=== PATIENT | female | born 1995 | race Caucasian/White ===

== ENCOUNTER 2017-08-11 18:31 | Emergency (ER) | payer SELFPAY ==
[~2017-08-11] VITALS: Ht 160 cm; Wt 90.1 kg
[2017-08-11 19:49] LABS: HEMATOCRIT 33.6 % (36.0-46.0); HEMOGLOBIN 10.6 G/DL (11.9-15.5); MCH 26.7 PG (29.0-34.0); MCHC 31.5 G/DL (30.0-36.0); MCV 84.6 FL (83-99); PLATELET COUNT 395 K/uL (156-360); RBC DIS.WIDTH-CV 13.4 % (11.8-14.6); RBC DIS.WIDTH-SD 41.2 % (39-53); RED BLOOD COUNT 3.97 M/uL (3.80-5.20)
[2017-08-11 20:23] LABS: ALBUMIN 4.5 g/dL (3.2-4.8)
[2017-08-11 20:24] LABS: CHLORIDE 106 mEq/L (99-109); POTASSIUM 4.2 mEq/L (3.7-5.4); SODIUM 141 mEq/L (136-147)
[2017-08-11 20:26] LABS: GLUCOSE 96 mg/dL (70-99)
[2017-08-11 20:28] LABS: TOTAL BILIRUBIN 0.1 mg/dL (0.0-1.0)
[2017-08-11 20:29] LABS: ALKALINE PHOSPHATASE 63 IU/L (3-129)
[2017-08-11 20:30] LABS: CREATININE 0.7 mg/dL (0.6-1.3)
[2017-08-11 20:31] LABS: AST (GOT) 23 IU/L (2-34); UREA NITROGEN (BUN) 12 mg/dL (9-23)
[2017-08-11 20:33] LABS: ALT (GPT) 25 IU/L (3-49)
[2017-08-11 20:37] LABS: GFR ESTIMATE (CALCULATED) > 59 mL/min/
[2017-08-11 20:40] LABS: QUANTITATIVE HCG < 4.0 MIU/ML
[2017-08-11 22:23] LABS: APPEARANCE CLEAR ((CLEAR)); BILIRUBIN NEGATIVE; BLOOD NEGATIVE; COLOR YELLOW ((YELLOW)); GLUCOSE (STRIP) NEGATIVE; KETONES NEGATIVE; LEUKOCYTES NEGATIVE; NITRITE NEGATIVE; PROTEIN (STRIP) NEGATIVE; UCUL ADDED? NO; UROBILINOGEN 0.2 MG/DL (0.2-1.0)
[2017-08-11 23:06] VITALS: BP 166/86
== END 2017-08-11 23:08 | disposition home or self-care (01) ==
LOC: EME 18:31
PROVIDERS: Physician Assistant Medical
DX: O03.9 Complete or unspecified spontaneous abortion without complication (principal); F32.9 Major depressive disorder, single episode, unspecified
CPT/HCPCS: 80053; 81003; 84702; 85027; 99281; 99284

== ENCOUNTER 2017-08-17 10:31 | Emergency (ER) | payer OTHER ==
[~2017-08-17] VITALS: Ht 160 cm; Wt 87.8 kg
[2017-08-17 12:26] VITALS: BP 127/65
== END 2017-08-17 12:27 | disposition home or self-care (01) ==
LOC: EME 10:31
DX: Z76.0 Encounter for issue of repeat prescription (principal); F32.9 Major depressive disorder, single episode, unspecified; Z59.0 Homelessness
CPT/HCPCS: 99281; 99283

== ENCOUNTER 2017-08-21 21:20 | Emergency (ER) | payer OTHER ==
[~2017-08-21] VITALS: Ht 160 cm; Wt 70.0 kg
[2017-08-21] MEDS ORDERED: LAMOTRIGINE ODT50 MG PO (21:44)
[2017-08-21] MEDS ORDERED: THORAZINE25 MG PO (22:01)
[2017-08-21 22:10] VITALS: BP 127/82
== END 2017-08-21 22:11 | disposition home or self-care (01) ==
LOC: EME → EDBD 21:20 → EME 21:20
DX: F43.0 Acute stress reaction (principal); S61.511A Laceration without foreign body of right wrist, initial encounter; S31.113A Laceration without foreign body of abdominal wall, right lower quadrant without penetration into peritoneal cavity, initial encounter; X78.9XXA Intentional self-harm by unspecified sharp object, initial encounter
CPT/HCPCS: 99281; 99285

== ENCOUNTER 2017-08-24 13:10 | Emergency (ER) | payer OTHER ==
[~2017-08-24] VITALS: Ht 160 cm; Wt 86.4 kg
[~2017-08-24 13:10] MED LIST: LAMOTRIGINE ODT50 MG PO; THORAZINE25 MG PO
[2017-08-24 13:22] VITALS: BP 117/76
[2017-08-24 14:09] LABS: APPEARANCE SL.HAZY ((CLEAR)); BILIRUBIN NEGATIVE; BLOOD MODERATE; COLOR YELLOW ((YELLOW)); GLUCOSE (STRIP) NEGATIVE; KETONES NEGATIVE; LEUKOCYTES NEGATIVE; NITRITE NEGATIVE; PROTEIN (STRIP) NEGATIVE; SPECIFIC GRAVITY 1.027 (1.000-1.030); UROBILINOGEN 0.2 MG/DL (0.2-1.0)
[2017-08-24 14:13] LABS: BACTERIA RARE /HPF; EPITHELIAL CELLS 1+ /HPF; MUCUS 1+ /LPF; UCUL ADDED? NO; WHITE BLOOD CELLS 0-5 /HPF (0-5)
== END 2017-08-24 16:21 | disposition left against medical advice (07) ==
LOC: EME 13:10
DX: N93.9 Abnormal uterine and vaginal bleeding, unspecified (principal); Z53.21 Procedure and treatment not carried out due to patient leaving prior to being seen by health care provider
CPT/HCPCS: 81003

== ENCOUNTER 2017-09-11 12:58 | Emergency (ER) | payer OTHER ==
[~2017-09-11] VITALS: Ht 160 cm; Wt 86.5 kg
[2017-09-11 14:42] LABS: HEMATOCRIT 33.4 % (36.0-46.0); HEMOGLOBIN 10.8 G/DL (11.9-15.5); MCH 26.2 PG (29.0-34.0); MCHC 32.3 G/DL (30.0-36.0); MCV 80.9 FL (83-99); PLATELET COUNT 389 K/uL (156-360); RBC DIS.WIDTH-CV 13.6 % (11.8-14.6); RBC DIS.WIDTH-SD 40.1 % (39-53); RED BLOOD COUNT 4.13 M/uL (3.80-5.20); WHITE BLOOD COUNT 12.5 K/uL (4.1-10.2)
[2017-09-11 14:51] LABS: CHLORIDE 107 mEq/L (99-109); POTASSIUM 3.6 mEq/L (3.7-5.4); SODIUM 142 mEq/L (136-147)
[2017-09-11 14:53] LABS: GLUCOSE 102 mg/dL (70-99)
[2017-09-11 14:56] LABS: SERUM ETHYL ALCOHOL < 10 mg/dL
[2017-09-11 14:57] LABS: CREATININE 0.7 mg/dL (0.6-1.3); GFR ESTIMATE (CALCULATED) > 59 mL/min/
[2017-09-11 14:58] LABS: UREA NITROGEN (BUN) 9 mg/dL (9-23)
[2017-09-11 20:56] LABS: APPEARANCE SL.HAZY ((CLEAR)); BILIRUBIN NEGATIVE; BLOOD NEGATIVE; COLOR YELLOW ((YELLOW)); GLUCOSE (STRIP) NEGATIVE; KETONES NEGATIVE; LEUKOCYTES NEGATIVE; NITRITE NEGATIVE; PROTEIN (STRIP) 30; SPECIFIC GRAVITY 1.023 (1.000-1.030); UROBILINOGEN 0.2 MG/DL (0.2-1.0)
[2017-09-11 21:03] LABS: BACTERIA RARE /HPF; EPITHELIAL CELLS 1+ /HPF; MUCUS 1+ /LPF; RED BLOOD CELLS 0-5 /HPF (0-5); UCUL ADDED? NO; WHITE BLOOD CELLS 0-5 /HPF (0-5)
[2017-09-11 21:11] LABS: AMPHETAMINE NEGATIVE (500 ng/mL); BARBITURATES NEGATIVE (200 ng/mL); BENZODIAZEPINES PRESUMPTIVE POSITIVE (150 ng/mL); BUPRENORPHINE NEGATIVE (10 ng/mL); COCAINE NEGATIVE (150 ng/mL); METHADONE NEGATIVE (200 ng/mL); METHAMPHETAMINE NEGATIVE (500 ng/mL); OPIATES (MORPHINE) NEGATIVE (100 ng/mL); OXYCODONE NEGATIVE (100 ng/mL); PHENCYCLIDINE NEGATIVE (25 ng/mL); PROPOXYPHENE NEGATIVE (300 ng/mL); THC CANNABINOIDS NEGATIVE (50 ng/mL); TRICYCLIC ANTIDEPRESSANTS NEGATIVE (300 ng/mL)
[2017-09-11 21:46] LABS: BENZODIAZEPINES, URINE SCREEN Negative (200 ng/mL)
[2017-09-11] MEDS ORDERED: BACTRIM,SEPT1 TABLET PO (22:20)
[2017-09-12] MEDS ORDERED: BACTRIM,SEPT1 TABLET PO (14:03)
[2017-09-12 14:19] VITALS: BP 145/70
== END 2017-09-12 14:21 ==
LOC: EME 12:58
PROVIDERS: Emergency Medicine
PROC: 0HQDXZZ Repair Right Lower Arm Skin, External Approach (ICD-10-PCS; principal; 2017-09-11)
DX: F31.4 Bipolar disorder, current episode depressed, severe, without psychotic features (principal); N39.0 Urinary tract infection, site not specified; R45.851 Suicidal ideations; F60.3 Borderline personality disorder; S61.511A Laceration without foreign body of right wrist, initial encounter; X78.8XXA Intentional self-harm by other sharp object, initial encounter; F43.10 Post-traumatic stress disorder, unspecified; F17.200 Nicotine dependence, unspecified, uncomplicated
CPT/HCPCS: 80048; 81003; 81025; 84999; 85027; 90837; 99281; 99285; G0480; J1200; J1630; J2060

== ENCOUNTER 2017-09-30 20:21 | Emergency (ER) | payer OTHER ==
[~2017-09-30] VITALS: Ht 160 cm; Wt 90.8 kg
[~2017-09-30 20:21] MED LIST changes: +BACTRIM,SEPT1 TABLET PO
[2017-09-30 20:52] LABS: HEMATOCRIT 33.1 % (36.0-46.0); HEMOGLOBIN 10.7 G/DL (11.9-15.5); MCH 26.2 PG (29.0-34.0); MCHC 32.3 G/DL (30.0-36.0); MCV 80.9 FL (83-99); PLATELET COUNT 392 K/uL (156-360); RBC DIS.WIDTH-CV 14.6 % (11.8-14.6); RED BLOOD COUNT 4.09 M/uL (3.80-5.20); WHITE BLOOD COUNT 10.8 K/uL (4.1-10.2)
[2017-09-30 21:02] LABS: ALBUMIN 4.2 g/dL (3.2-4.8); CHLORIDE 105 mEq/L (99-109); SODIUM 139 mEq/L (136-147)
[2017-09-30 21:05] LABS: GLUCOSE 143 mg/dL (70-99)
[2017-09-30 21:06] LABS: TOTAL BILIRUBIN 0.4 mg/dL (0.0-1.0)
[2017-09-30 21:08] LABS: ALKALINE PHOSPHATASE 102 IU/L (3-129); CREATININE 0.7 mg/dL (0.6-1.3); GFR ESTIMATE (CALCULATED) > 59 mL/min/
[2017-09-30 21:09] LABS: UREA NITROGEN (BUN) 8 mg/dL (9-23)
[2017-09-30 21:10] LABS: AST (GOT) 75 IU/L (2-34)
[2017-09-30 21:11] LABS: ALT (GPT) 180 IU/L (3-49)
[2017-09-30 21:17] LABS: QUANTITATIVE HCG < 4.0 MIU/ML
[2017-09-30 21:20] LABS: APPEARANCE SL.HAZY ((CLEAR)); BILIRUBIN NEGATIVE; BLOOD SMALL; COLOR YELLOW ((YELLOW)); GLUCOSE (STRIP) NEGATIVE; KETONES NEGATIVE; LEUKOCYTES NEGATIVE; NITRITE NEGATIVE; PROTEIN (STRIP) NEGATIVE; SPECIFIC GRAVITY 1.016 (1.000-1.030); UROBILINOGEN 0.2 MG/DL (0.2-1.0)
[2017-09-30 21:28] LABS: BACTERIA NONE SEEN /HPF; EPITHELIAL CELLS 2+ /HPF; MUCUS TRACE /LPF; RED BLOOD CELLS 0-5 /HPF (0-5); UCUL ADDED? NO; WHITE BLOOD CELLS 0-5 /HPF (0-5)
[2017-10-01 01:11] VITALS: BP 137/77
== END 2017-10-01 01:12 | disposition home or self-care (01) ==
LOC: EME 20:21
DX: K59.00 Constipation, unspecified (principal); I88.0 Nonspecific mesenteric lymphadenitis; K80.20 Calculus of gallbladder without cholecystitis without obstruction; K76.0 Fatty (change of) liver, not elsewhere classified; F32.9 Major depressive disorder, single episode, unspecified; F43.10 Post-traumatic stress disorder, unspecified; F60.3 Borderline personality disorder; Z87.19 Personal history of other diseases of the digestive system; F17.200 Nicotine dependence, unspecified, uncomplicated; Z88.6 Allergy status to analgesic agent; Z91.040 Latex allergy status
CPT/HCPCS: 74177; 80053; 81003; 84702; 85027; 99281; 99285; J7030

== ENCOUNTER 2017-10-09 10:57 | Inpatient (IN) | payer OTHER ==
[~2017-10-09] VITALS: Ht 160 cm; Wt 86.8 kg
[2017-10-09 12:14] LABS: BASOPHIL (%) 0.5 % (0-1); EOSINOPHIL (%) 2.7 % (0-5); EOSINOPHIL COUNT 0.2 K/uL (0-0.3); HEMATOCRIT 36.6 % (36.0-46.0); HEMOGLOBIN 11.5 G/DL (11.9-15.5); IMMATURE GRANULOCYTE (%) 0.4 % (0.0-0.7); LYMPHOCYTE (%) 21.5 % (15-42); LYMPHOCYTE COUNT 1.7 K/uL (1.0-2.8); MCH 25.5 PG (29.0-34.0); MCHC 31.4 G/DL (30.0-36.0); MCV 81.2 FL (83-99); MONOCYTE (%) 6.5 % (3-12); MONOCYTE COUNT 0.5 K/uL (0-0.8); NEUTROPHIL (%) 68.4 % (45-76); NEUTROPHIL COUNT 5.5 K/uL (1.8-6.4); PLATELET COUNT 402 K/uL (156-360); RBC DIS.WIDTH-CV 14.4 % (11.8-14.6); RBC DIS.WIDTH-SD 41.7 % (39-53); RED BLOOD COUNT 4.51 M/uL (3.80-5.20)
[2017-10-09 12:15] LABS: APPEARANCE CLEAR ((CLEAR)); BILIRUBIN NEGATIVE; BLOOD NEGATIVE; COLOR YELLOW ((YELLOW)); GLUCOSE (STRIP) NEGATIVE; KETONES NEGATIVE; LEUKOCYTES NEGATIVE; NITRITE NEGATIVE; PROTEIN (STRIP) NEGATIVE; SPECIFIC GRAVITY 1.017 (1.000-1.030); UROBILINOGEN 0.2 MG/DL (0.2-1.0)
[2017-10-09 12:23] LABS: CHLORIDE 106 mEq/L (99-109); POTASSIUM 4.4 mEq/L (3.7-5.4); SODIUM 139 mEq/L (136-147)
[2017-10-09 12:25] LABS: GLUCOSE 97 mg/dL (70-99)
[2017-10-09 12:28] LABS: SERUM ETHYL ALCOHOL < 10 mg/dL
[2017-10-09 12:29] LABS: CREATININE 0.7 mg/dL (0.6-1.3); GFR ESTIMATE (CALCULATED) > 59 mL/min/
[2017-10-09 12:30] LABS: UREA NITROGEN (BUN) 13 mg/dL (9-23)
[2017-10-09 12:37] LABS: QUANTITATIVE HCG < 4.0 MIU/ML
[2017-10-09 12:45] LABS: AMPHETAMINE NEGATIVE (500 ng/mL); BARBITURATES NEGATIVE (200 ng/mL); BENZODIAZEPINES NEGATIVE (150 ng/mL); BUPRENORPHINE NEGATIVE (10 ng/mL); COCAINE NEGATIVE (150 ng/mL); METHADONE NEGATIVE (200 ng/mL); METHAMPHETAMINE NEGATIVE (500 ng/mL); OPIATES (MORPHINE) NEGATIVE (100 ng/mL); OXYCODONE NEGATIVE (100 ng/mL); PHENCYCLIDINE NEGATIVE (25 ng/mL); PROPOXYPHENE NEGATIVE (300 ng/mL); THC CANNABINOIDS NEGATIVE (50 ng/mL); TRICYCLIC ANTIDEPRESSANTS NEGATIVE (300 ng/mL)
[2017-10-09] MEDS ORDERED: GABAPENTIN300 MG PO (14:40)
[2017-10-09] MEDS ORDERED: ZYPREXA10 MG PO (14:40)
[2017-10-09] MEDS ORDERED: ZYPREXA5 MG PO (14:41)
[2017-10-09] MEDS ORDERED: XANAX1 MG PO (14:42)
[2017-10-09] MEDS ORDERED: PAXIL10 MG PO ×2 (14:44→15:59)
[2017-10-09] MEDS ORDERED: SEROQUEL12.5 MG PO (14:44)
[2017-10-09] MEDS ORDERED: CLONAZEPAM0.5 MG PO (14:45)
[2017-10-09 15:00] VITALS: BP 121/57
[2017-10-10 08:48] VITALS: BP 111/58
[2017-10-10 15:32] VITALS: BP 115/57
[2017-10-11 08:11] VITALS: BP 105/57
[2017-10-11 15:47] VITALS: BP 109/54
[2017-10-12 07:48] VITALS: BP 94/45
[2017-10-12 15:40] VITALS: BP 129/60
[2017-10-13 07:53] VITALS: BP 109/52
[2017-10-13] MEDS ORDERED: ZYPREXA20 MG PO (09:12)
[2017-10-13] MEDS ORDERED: GABAPENTIN300 MG PO (09:12)
[2017-10-13] MEDS ORDERED: CLONAZEPAM0.5 MG PO (09:12)
[2017-10-13] MEDS ORDERED: PAROXETINE HCL30 MG PO (09:12)
== END 2017-10-13 10:44 | disposition home or self-care (01) | DRG 885 ==
LOC: EME 10:57 → EDOF 13:02 → 1WEST 13:02 → EDOF 13:34 → ENRESERV 14:09 → 1WEST 14:42
PROVIDERS: Emergency Medicine
DX: F31.9 Bipolar disorder, unspecified (principal); R45.851 Suicidal ideations; F60.3 Borderline personality disorder; F43.10 Post-traumatic stress disorder, unspecified; F17.200 Nicotine dependence, unspecified, uncomplicated; Z62.810 Personal history of physical and sexual abuse in childhood; Z62.811 Personal history of psychological abuse in childhood; Z91.5 Personal history of self-harm; Z81.8 Family history of other mental and behavioral disorders; Z88.6 Allergy status to analgesic agent; Z91.040 Latex allergy status
CPT/HCPCS: 80048; 81003; 84702; 85025; 90839; 97165 GO; 99281; 99285; G0480; Q0161; Q0177

== ENCOUNTER 2017-10-17 20:52 | Emergency (ER) | payer OTHER ==
[~2017-10-17] VITALS: Ht 160 cm; Wt 90.6 kg
[~2017-10-17 20:52] MED LIST changes: +CLONAZEPAM0.5 MG PO; +GABAPENTIN300 MG PO; +PAROXETINE HCL30 MG PO; +PAXIL10 MG PO; +SEROQUEL12.5 MG PO; +XANAX1 MG PO; +ZYPREXA10 MG PO; +ZYPREXA20 MG PO; +ZYPREXA5 MG PO
[2017-10-17 22:58] LABS: APPEARANCE SL.HAZY ((CLEAR)); BILIRUBIN NEGATIVE; BLOOD NEGATIVE; COLOR YELLOW ((YELLOW)); GLUCOSE (STRIP) 50; KETONES NEGATIVE; LEUKOCYTES MODERATE; NITRITE NEGATIVE; PROTEIN (STRIP) 30; SPECIFIC GRAVITY 1.018 (1.000-1.030); UROBILINOGEN 0.2 MG/DL (0.2-1.0)
[2017-10-17] MEDS ORDERED: FLAGYL500 MG PO (23:02)
[2017-10-17] MEDS ORDERED: DIFLUCAN150 MG PO (23:02)
[2017-10-17 23:08] LABS: BACTERIA 3+ /HPF; EPITHELIAL CELLS 3+ /HPF; MUCUS TRACE /LPF; RED BLOOD CELLS 0-5 /HPF (0-5)
[2017-10-17 23:20] VITALS: BP 129/81
== END 2017-10-17 23:21 | disposition home or self-care (01) ==
LOC: EME 20:52
PROVIDERS: Nurse Practitioner Family
DX: R10.31 Right lower quadrant pain (principal); N76.0 Acute vaginitis; B37.3 Candidiasis of vulva and vagina; F32.9 Major depressive disorder, single episode, unspecified; F60.3 Borderline personality disorder; F43.10 Post-traumatic stress disorder, unspecified; F17.200 Nicotine dependence, unspecified, uncomplicated
CPT/HCPCS: 81003; 81025; 99281; 99283

== ENCOUNTER 2017-11-03 16:58 | Emergency (ER) | payer OTHER ==
[~2017-11-03] VITALS: Ht 160 cm; Wt 86.9 kg
[~2017-11-03 16:58] MED LIST changes: +DIFLUCAN150 MG PO; +FLAGYL500 MG PO
[2017-11-03 17:10] VITALS: BP 131/68
[2017-11-03 17:31] LABS: APPEARANCE CLEAR ((CLEAR)); BILIRUBIN NEGATIVE; BLOOD MODERATE; COLOR YELLOW ((YELLOW)); GLUCOSE (STRIP) NEGATIVE; KETONES 5; LEUKOCYTES TRACE; NITRITE NEGATIVE; PROTEIN (STRIP) NEGATIVE; UROBILINOGEN 0.2 MG/DL (0.2-1.0)
[2017-11-03 17:36] LABS: BACTERIA RARE /HPF; EPITHELIAL CELLS 1+ /HPF; HYALINE CASTS 0-5 /LPF; MUCUS 2+ /LPF; RED BLOOD CELLS 0-5 /HPF (0-5)
[2017-11-03 17:37] LABS: HEMATOCRIT 37.5 % (36.0-46.0); MCH 25.8 PG (29.0-34.0); MCV 80.5 FL (83-99); PLATELET COUNT 429 K/uL (156-360); RBC DIS.WIDTH-SD 43.7 % (39-53); RED BLOOD COUNT 4.66 M/uL (3.80-5.20); WHITE BLOOD COUNT 9.2 K/uL (4.1-10.2)
[2017-11-03 17:45] LABS: ALBUMIN 4.9 g/dL (3.2-4.8)
[2017-11-03 17:46] LABS: CHLORIDE 104 mEq/L (99-109); POTASSIUM 4.3 mEq/L (3.7-5.4); SODIUM 140 mEq/L (136-147)
[2017-11-03 17:48] LABS: GLUCOSE 85 mg/dL (70-99)
[2017-11-03 17:50] LABS: TOTAL BILIRUBIN 0.2 mg/dL (0.0-1.0)
[2017-11-03 17:51] LABS: ALKALINE PHOSPHATASE 74 IU/L (3-129)
[2017-11-03 17:52] LABS: CREATININE 0.8 mg/dL (0.6-1.3); GFR ESTIMATE (CALCULATED) > 59 mL/min/
[2017-11-03 17:53] LABS: AST (GOT) 28 IU/L (2-34); UREA NITROGEN (BUN) 10 mg/dL (9-23)
[2017-11-03 17:55] LABS: ALT (GPT) 35 IU/L (3-49)
[2017-11-03 18:00] LABS: QUANTITATIVE HCG < 4.0 MIU/ML
[2017-11-03] MEDS ORDERED: ZOFRAN ODT4 MG PO (18:36)
[2017-11-03] MEDS ORDERED: BACTRIM,SEPT1 TABLET PO (18:36)
[2017-11-04] MEDS ORDERED: KLONOPIN0.5 M1 PO (11:18)
[2017-11-04] MEDS ORDERED: GABAPENTIN300 MG PO (11:18)
[2017-11-04] MEDS ORDERED: PAXIL30 MG PO (11:18)
[2017-11-04] MEDS ORDERED: OLANZAPINE10 MG PO (11:19)
== END 2017-11-03 18:46 | disposition home or self-care (01) ==
LOC: EME 16:58
PROVIDERS: Nurse Practitioner Family
DX: R10.31 Right lower quadrant pain (principal); N39.0 Urinary tract infection, site not specified; R11.2 Nausea with vomiting, unspecified; R19.7 Diarrhea, unspecified; F17.200 Nicotine dependence, unspecified, uncomplicated
CPT/HCPCS: 74177; 80053; 81003; 84702; 85027; 99281; 99285; J2405; J3010; J7030

== ENCOUNTER 2017-11-03 22:55 | Inpatient (IN) | payer OTHER ==
[~2017-11-03] VITALS: Ht 160 cm; Wt 84.5 kg
[~2017-11-03 22:55] MED LIST changes: +ZOFRAN ODT4 MG PO
[2017-11-03 23:50] LABS: AMPHETAMINE NEGATIVE (500 ng/mL); BARBITURATES NEGATIVE (200 ng/mL); BENZODIAZEPINES NEGATIVE (150 ng/mL); BUPRENORPHINE NEGATIVE (10 ng/mL); COCAINE NEGATIVE (150 ng/mL); METHADONE NEGATIVE (200 ng/mL); METHAMPHETAMINE NEGATIVE (500 ng/mL); OPIATES (MORPHINE) NEGATIVE (100 ng/mL); OXYCODONE NEGATIVE (100 ng/mL); PHENCYCLIDINE NEGATIVE (25 ng/mL); PROPOXYPHENE NEGATIVE (300 ng/mL); THC CANNABINOIDS NEGATIVE (50 ng/mL); TRICYCLIC ANTIDEPRESSANTS PRESUMPTIVE POSITIVE (300 ng/mL)
[2017-11-04] VITALS (22 sets, daily range): BP systolic 112–145; BP diastolic 61–91
[2017-11-04 00:02] LABS: HEMATOCRIT 38.2 % (36.0-46.0); HEMOGLOBIN 12.3 G/DL (11.9-15.5); MCH 25.8 PG (29.0-34.0); MCHC 32.2 G/DL (30.0-36.0); MCV 80.1 FL (83-99); PLATELET COUNT 438 K/uL (156-360); RBC DIS.WIDTH-SD 43.7 % (39-53); RED BLOOD COUNT 4.77 M/uL (3.80-5.20); WHITE BLOOD COUNT 9.4 K/uL (4.1-10.2)
[2017-11-04 00:25] LABS: CHLORIDE 106 mEq/L (99-109); POTASSIUM 4.2 mEq/L (3.7-5.4); SODIUM 141 mEq/L (136-147)
[2017-11-04 00:27] LABS: GLUCOSE 127 mg/dL (70-99); TOTAL PROTEIN 7.8 g/dL (6.4-8.3)
[2017-11-04 00:28] LABS: COMMENTS - BLOOD GASES C+; DEVICE VENT; FI02 60 %; MECHANICAL RATE 14 resp/min; MODE AC; PEEP 5 CM/H20; SITE LR; TIDAL VOLUME 450 ML; TOTAL RESP RATE 23 resp/min; pH 7.41 (7.35-7.45)
[2017-11-04 00:29] LABS: TOTAL BILIRUBIN 0.2 mg/dL (0.0-1.0)
[2017-11-04 00:29] LABS: BASE EXCESS -3.1 mEq/L (-3 to +3); BICARBONATE 20.9 mEq/L (22-26); CARBOXY HGB 1.1 % (0-5); O2 SATURATION (CALCULATED) 97.2 % (95-99); PCO2 33 mm Hg (35-45); PO2 153 mm Hg (80-100)
[2017-11-04 00:30] LABS: SERUM ETHYL ALCOHOL < 10 mg/dL
[2017-11-04 00:31] LABS: ALKALINE PHOSPHATASE 75 IU/L (3-129); CREATININE 0.8 mg/dL (0.6-1.3); GFR ESTIMATE (CALCULATED) > 59 mL/min/
[2017-11-04 00:32] LABS: AST (GOT) 28 IU/L (2-34)
[2017-11-04 00:33] LABS: UREA NITROGEN (BUN) 9 mg/dL (9-23)
[2017-11-04 00:34] LABS: ALT (GPT) 35 IU/L (3-49); SALICYLATE < 5.0 MG/DL (15-30)
[2017-11-04 00:35] LABS: ACETAMINOPHEN (TYLENOL) < 10 mcg/mL (10-30); LIPASE 19 U/L (1.0-51.0)
[2017-11-04 00:44] LABS: QUANTITATIVE HCG < 4.0 MIU/ML
[2017-11-04 05:46] LABS: BASOPHIL (%) 0.2 % (0-1); EOSINOPHIL (%) 0.4 % (0-5); EOSINOPHIL COUNT 0.1 K/uL (0-0.3); HEMATOCRIT 33.2 % (36.0-46.0); IMMATURE GRANULOCYTE (%) 0.2 % (0.0-0.7); LYMPHOCYTE (%) 12.4 % (15-42); LYMPHOCYTE COUNT 1.7 K/uL (1.0-2.8); MCH 25.7 PG (29.0-34.0); MCV 82.8 FL (83-99); MONOCYTE (%) 4.7 % (3-12); MONOCYTE COUNT 0.6 K/uL (0-0.8); NEUTROPHIL (%) 82.1 % (45-76); NEUTROPHIL COUNT 11.1 K/uL (1.8-6.4); PLATELET COUNT 334 K/uL (156-360); RBC DIS.WIDTH-CV 15.3 % (11.8-14.6); RBC DIS.WIDTH-SD 46.5 % (39-53); RED BLOOD COUNT 4.01 M/uL (3.80-5.20); WHITE BLOOD COUNT 13.5 K/uL (4.1-10.2)
[2017-11-04 05:49] LABS: HEMOGLOBIN 10.3 G/DL (11.9-15.5)
[2017-11-04 06:00] LABS: CHLORIDE 114 MEQ/L (99-109); CREATININE 0.7 MG/DL (0.6-1.3); GFR ESTIMATE (CALCULATED) > 59 mL/min/; GLUCOSE 176 mg/dL (70-99); POTASSIUM 4.3 MEQ/L (3.7-5.4); SODIUM 141 MEQ/L (136-147); UREA NITROGEN (BUN) 7 mg/dL (9-23)
[2017-11-04] MEDS ORDERED: PAXIL30 MG PO (11:18)
[2017-11-04] MEDS ORDERED: KLONOPIN0.5 M1 PO (11:18)
[2017-11-04] MEDS ORDERED: GABAPENTIN300 MG PO (11:18)
[2017-11-04] MEDS ORDERED: OLANZAPINE10 MG PO (11:19)
[2017-11-05] VITALS (21 sets, daily range): BP systolic 116–142; BP diastolic 67–98
[2017-11-05 06:00] LABS: BASOPHIL (%) 0.5 % (0-1); EOSINOPHIL (%) 2.2 % (0-5); EOSINOPHIL COUNT 0.2 K/uL (0-0.3); HEMATOCRIT 29.9 % (36.0-46.0); HEMOGLOBIN 9.3 G/DL (11.9-15.5); IMMATURE GRANULOCYTE (%) 0.4 % (0.0-0.7); LYMPHOCYTE COUNT 1.5 K/uL (1.0-2.8); MCH 25.2 PG (29.0-34.0); MCHC 31.1 G/DL (30.0-36.0); MONOCYTE (%) 9.5 % (3-12); MONOCYTE COUNT 0.8 K/uL (0-0.8); NEUTROPHIL (%) 69.4 % (45-76); NEUTROPHIL COUNT 5.6 K/uL (1.8-6.4); PLATELET COUNT 293 K/uL (156-360); RBC DIS.WIDTH-CV 15.5 % (11.8-14.6); RBC DIS.WIDTH-SD 45.9 % (39-53); RED BLOOD COUNT 3.69 M/uL (3.80-5.20); WHITE BLOOD COUNT 8.1 K/uL (4.1-10.2)
[2017-11-05 06:45] LABS: CHLORIDE 111 MEQ/L (99-109); CREATININE 0.5 MG/DL (0.6-1.3); GFR ESTIMATE (CALCULATED) > 59 mL/min/; SODIUM 143 MEQ/L (136-147); UREA NITROGEN (BUN) 6 mg/dL (9-23)
[2017-11-05 06:46] LABS: GLUCOSE 96 mg/dL (70-99); POTASSIUM 3.3 MEQ/L (3.7-5.4)
[2017-11-05 17:18] LABS: CHLORIDE 114 MEQ/L (99-109); CREATININE 0.6 MG/DL (0.6-1.3); GFR ESTIMATE (CALCULATED) > 59 mL/min/; GLUCOSE 134 mg/dL (70-99); MAGNESIUM 1.9 mg/dl (1.3-2.7); POTASSIUM 3.7 MEQ/L (3.7-5.4); SODIUM 143 MEQ/L (136-147); UREA NITROGEN (BUN) 5 mg/dL (9-23)
[2017-11-06] VITALS (20 sets, daily range): BP systolic 96–141; BP diastolic 53–95
[2017-11-06 05:08] LABS: BASOPHIL (%) 0.3 % (0-1); EOSINOPHIL COUNT 0.3 K/uL (0-0.3); HEMATOCRIT 30.8 % (36.0-46.0); HEMOGLOBIN 10.1 G/DL (11.9-15.5); IMMATURE GRANULOCYTE (%) 0.3 % (0.0-0.7); LYMPHOCYTE (%) 13.2 % (15-42); LYMPHOCYTE COUNT 1.7 K/uL (1.0-2.8); MCHC 32.8 G/DL (30.0-36.0); MCV 79.2 FL (83-99); MONOCYTE (%) 6.1 % (3-12); MONOCYTE COUNT 0.8 K/uL (0-0.8); NEUTROPHIL (%) 78.1 % (45-76); PLATELET COUNT 335 K/uL (156-360); RBC DIS.WIDTH-CV 14.7 % (11.8-14.6); RBC DIS.WIDTH-SD 42.6 % (39-53); RED BLOOD COUNT 3.89 M/uL (3.80-5.20); WHITE BLOOD COUNT 12.8 K/uL (4.1-10.2)
[2017-11-06 05:22] LABS: CHLORIDE 110 mEq/L (99-109); POTASSIUM 3.4 mEq/L (3.7-5.4); SODIUM 145 mEq/L (136-147)
[2017-11-06 05:28] LABS: CREATININE 0.6 mg/dL (0.6-1.3); GFR ESTIMATE (CALCULATED) > 59 mL/min/
[2017-11-06 05:29] LABS: UREA NITROGEN (BUN) 4 mg/dL (9-23)
[2017-11-06 05:30] LABS: GLUCOSE 89 mg/dL (70-99)
[2017-11-07 06:04] LABS: HEMATOCRIT 32.1 % (36.0-46.0); MCH 24.8 PG (29.0-34.0); MCHC 31.2 G/DL (30.0-36.0); MCV 79.5 FL (83-99); PLATELET COUNT 332 K/uL (156-360); RBC DIS.WIDTH-CV 14.7 % (11.8-14.6); RBC DIS.WIDTH-SD 42.8 % (39-53); RED BLOOD COUNT 4.04 M/uL (3.80-5.20); WHITE BLOOD COUNT 9.6 K/uL (4.1-10.2)
[2017-11-07 06:33] LABS: CHLORIDE 108 MEQ/L (99-109); CREATININE 0.5 MG/DL (0.6-1.3); GFR ESTIMATE (CALCULATED) > 59 mL/min/; GLUCOSE 84 mg/dL (70-99); MAGNESIUM 1.9 mg/dl (1.3-2.7); POTASSIUM 3.9 MEQ/L (3.7-5.4); SODIUM 142 MEQ/L (136-147); UREA NITROGEN (BUN) 11 mg/dL (9-23)
[2017-11-07 07:30] VITALS: BP 127/56
[2017-11-07] MEDS ORDERED: NEURONTIN300 MG PO (16:02)
[2017-11-07] MEDS ORDERED: PEPCID20 MG PO (16:06)
[2017-11-07] MEDS ORDERED: AUGMENTIN875 MG PO (16:07)
== END 2017-11-07 14:03 | DRG 917 ==
LOC: EME → EDBD 23:04 → EME 23:04 → EDOF 11-04 02:16 → 5EAST 11-04 02:16 → 4WEST 11-04 02:16 → 5EAST 11-04 02:16 → ENRESERV 11-04 02:21 → 4WEST 11-04 05:01 → ENRESERV 11-06 → 4WEST 11-06 08:06 → ENRESERV 11-06 11:08 → 4WEST 11-06 15:50 → ENRESERV 11-06 16:00 → 5EAST 11-06 17:04
PROVIDERS: Emergency Medicine; Internal Medicine; Internal Medicine Critical Care Medicine; Specialist
PROC: 5A1935Z Respiratory Ventilation, Less than 24 Consecutive Hours (ICD-10-PCS; principal; 2017-11-04)
PROC: 0BH17EZ Insertion of Endotracheal Airway into Trachea, Via Natural or Artificial Opening (ICD-10-PCS; 2017-11-04)
DX: T43.592A Poisoning by other antipsychotics and neuroleptics, intentional self-harm, initial encounter (principal); J96.00 Acute respiratory failure, unspecified whether with hypoxia or hypercapnia; R40.20 Unspecified coma; E87.2 Acidosis; F31.4 Bipolar disorder, current episode depressed, severe, without psychotic features; F17.210 Nicotine dependence, cigarettes, uncomplicated; K21.9 Gastro-esophageal reflux disease without esophagitis; F43.10 Post-traumatic stress disorder, unspecified; F60.3 Borderline personality disorder; R73.03 Prediabetes; Y92.9 Unspecified place or not applicable; Z91.5 Personal history of self-harm; Z81.8 Family history of other mental and behavioral disorders
CPT/HCPCS: 36600; 71045; 80048; 80048 91; 80053; 82803; 82948; 83690; 83735; 84702; 85025; 85027; 87070; 87205; 87641; 93005; 94002; 94003; 99281; 99285; G0480; J0295; J1200; J1644; J2405; J2704; J3010; J7030; J7042; J7050; S0028

== ENCOUNTER 2017-11-07 13:47 | Inpatient (IN) | payer OTHER ==
[~2017-11-07 13:47] MED LIST changes: +KLONOPIN0.5 M1 PO; +OLANZAPINE10 MG PO; +PAXIL30 MG PO
[2017-11-07 14:21] VITALS: BP 130/62
[2017-11-07 16:00] VITALS: BP 116/71
[2017-11-07] MEDS ORDERED: NEURONTIN300 MG PO (16:02)
[2017-11-07] MEDS ORDERED: PEPCID20 MG PO (16:06)
[2017-11-07] MEDS ORDERED: AUGMENTIN875 MG PO (16:07)
[2017-11-08 07:48] VITALS: BP 125/58
[2017-11-09 07:43] VITALS: BP 127/70
[2017-11-09] MEDS ORDERED: PAROXETINE HCL40 MG PO (09:39)
== END 2017-11-09 10:55 | disposition home or self-care (01) | DRG 883 ==
LOC: 1WEST 13:47
DX: F60.3 Borderline personality disorder (principal); F33.9 Major depressive disorder, recurrent, unspecified; Z88.6 Allergy status to analgesic agent; Z91.040 Latex allergy status; F43.10 Post-traumatic stress disorder, unspecified; E66.3 Overweight